=== PATIENT | male | born 1940 | race Caucasian/White ===

== ENCOUNTER 2022-08-08 17:22 | Emergency (ER) | payer MEDICARE, BC ==
[~2022-08-08] VITALS: Ht 172.7 cm; Wt 75.4 kg
[~2022-08-08 17:22] MED LIST: AMOX500T PO; ANTI25TA PO; COUM1TAB17 GT; COUM1TAB18 PO; LANO0.252 PO; METO100T PO; METO50TA2 PO; SIMV20TA2 PO
[2022-08-08] MEDS ORDERED: LIDOCAINE W/EPINEPHRINE 1% 20ML VIAL SC ONE (18:05)
[2022-08-08 18:21] LABS: INR 2.35; PROTHROMBIN TIME 26.1 SECONDS (12.5-14.5)
[2022-08-08 18:47] VITALS: BP 187/81
== END 2022-08-08 19:03 | disposition left against medical advice (07) ==
LOC: M ED 17:22
DX: S01.01XA Laceration without foreign body of scalp, initial encounter (principal); S06.0X1S Concussion with loss of consciousness of 30 minutes or less, sequela; W01.198A Fall on same level from slipping, tripping and stumbling with subsequent striking against other object, initial encounter; Y92.89 Other specified places as the place of occurrence of the external cause; Y93.01 Activity, walking, marching and hiking; I48.91 Unspecified atrial fibrillation; I10 Essential (primary) hypertension; E78.5 Hyperlipidemia, unspecified; Z79.899 Other long term (current) drug therapy; Z79.01 Long term (current) use of anticoagulants

== ENCOUNTER → 2024-09-18 | Outpatient (CLI) | payer MEDICARE | LOC: M WUC 15:04 | PROVIDERS: ATTEND Family Medicine | DX: R63.4 Abnormal weight loss (principal) ==

== ENCOUNTER 2024-10-21 10:04 | Outpatient (CLI) | payer MEDICARE, OTHER ==
[~2024-10-21] VITALS: Ht 172.7 cm; Wt 63.6 kg
[~2024-10-21 10:04] MED LIST changes: +DIGO0.253; +LISI20TA33; +METO50TA7; +SIMV20TA22; +XARE20TA
[2024-10-21 10:10] VITALS: BP 164/83; O2SAT 97
[2024-10-21] MEDS: ZOLEDRONIC ACID 4 MG OVER 15 MINUTES IV ONE (10:14)
[2024-10-21 11:00] VITALS: BP 161/77; O2SAT 98
== END 2024-10-21 11:05 | disposition home or self-care (01) ==
LOC: M INFU 10:04
PROVIDERS: ATTEND Internal Medicine Nephrology
DX: E83.52 Hypercalcemia (principal)
CPT/HCPCS: 96365; J3489

== ENCOUNTER → 2024-10-22 | Outpatient (CLI) | payer MEDICARE, OTHER | LOC: M PLARAD 14:17 | PROVIDERS: ATTEND Specialist | DX: C90.00 Multiple myeloma not having achieved remission (principal) | CPT/HCPCS: 78815; A9552 ==

== ENCOUNTER → 2024-10-31 | Outpatient (CLI) | payer MEDICARE, OTHER | LOC: M RAD 12:18 | PROVIDERS: ATTEND Internal Medicine Nephrology | DX: N18.32 Chronic kidney disease, stage 3b (principal); E83.52 Hypercalcemia ==

== ENCOUNTER → 2024-12-24 | Outpatient (REF) | payer MEDICARE, OTHER | LOC: M LAB REF 16:59 | PROVIDERS: ATTEND Internal Medicine Nephrology | DX: R80.9 Proteinuria, unspecified (principal) ==